=== PATIENT | male | born 2000 | race Caucasian/White ===

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

== ENCOUNTER 2021-03-19 12:30 | Outpatient (RCR) | payer BC | END 2021-03-25 | disposition home or self-care (01) | LOC: WSST | DX: R49.0 Dysphonia (principal) ==